=== PATIENT | male | born 1985 | race Hispanic/Latino ===

== ENCOUNTER 2017-12-11 17:05 | Emergency (ER) | payer OTHER ==
[2017-12-11] MEDS ORDERED: DEXAMETHASONE SOD PHOSPHATE 10MG/ML 1ML VIAL ONE (18:18)
[2017-12-11] MEDS ORDERED: KETOROLAC TROMETHAMINE 30MG/ML ONE (18:18)
== END 2017-12-11 19:05 | disposition home or self-care (01) ==
LOC: EDH 17:05
DX: M54.5 Low back pain (principal); W10.8XXA Fall (on) (from) other stairs and steps, initial encounter; Y93.01 Activity, walking, marching and hiking; Y92.89 Other specified places as the place of occurrence of the external cause; Y99.8 Other external cause status
CPT/HCPCS: 72100; 96372 ×2; 99284; J1100; J1885

== ENCOUNTER 2022-10-11 00:30 | Emergency (ER) | payer OTHER ==
[~2022-10-11] VITALS: Ht 182.9 cm; Wt 116.6 kg
[2022-10-11 00:31] VITALS: BP 174/94; PULSE 54; RESP 16
== END 2022-10-11 00:41 | disposition left against medical advice (07) ==
LOC: EDH 00:30
DX: R10.31 Right lower quadrant pain (principal); Z53.21 Procedure and treatment not carried out due to patient leaving prior to being seen by health care provider

== ENCOUNTER 2023-02-23 09:59 | Emergency (ER) | payer OTHER ==
[~2023-02-23] VITALS: Ht 182.9 cm; Wt 117.5 kg
[2023-02-23 11:45] VITALS: BP 136/88; PULSE 76; RESP 16; O2SAT 99
[2023-02-23] MEDS ORDERED: KETOROLAC 60 MG VIAL (30MG/ML) IM ONE (13:00)
[2023-02-23] MEDS ORDERED: IBUP-2077 PO (14:33)
[2023-02-23] MEDS ORDERED: CYCL-309 PO (14:33)
== END 2023-02-23 14:40 | disposition home or self-care (01) ==
LOC: EDH 09:59
DX: S13.4XXA Sprain of ligaments of cervical spine, initial encounter (principal); Z90.49 Acquired absence of other specified parts of digestive tract; V89.2XXA Person injured in unspecified motor-vehicle accident, traffic, initial encounter; Y93.I9 Activity, other involving external motion; Y92.488 Other paved roadways as the place of occurrence of the external cause; Y99.8 Other external cause status
CPT/HCPCS: 99283; 72040; 96372; J1885